=== PATIENT | male | born 1975 | race Caucasian/White ===

== ENCOUNTER → 2024-06-11 06:30 | Day surgery (SDC) | payer OTHER, SELFPAY | LOC: GI 06:30 | PROVIDERS: ATTENDING PHYSICIAN Internal Medicine Gastroenterology | DX: Z12.11 Encounter for screening for malignant neoplasm of colon (principal); K64.8 Other hemorrhoids; R13.10 Dysphagia, unspecified; K31.89 Other diseases of stomach and duodenum; D12.2 Benign neoplasm of ascending colon; D12.3 Benign neoplasm of transverse colon; K63.5 Polyp of colon; Z86.010 Personal history of colon polyps | CPT/HCPCS: 45385; 45380; 43239; 88305; 88342 ==